=== PATIENT | male | born 1950 | race Caucasian/White ===

== ENCOUNTER 2020-10-29 04:42 | Emergency (ER) | payer OTHER ==
[2020-10-29 18:57] LABS: SARS-CoV-2 MS2 Positive; SARS-CoV-2 N Gene Negative; SARS-CoV-2 S Gene Negative; SARS-CoV-2 by NAA Not Detected (NotDetected); SARS-CoV-2 orf1ab Negative
== END 2020-10-29 05:50 | disposition home or self-care (01) ==
LOC: NAV ERS 04:42
DX: R05 Cough (principal); R52 Pain, unspecified; Z20.822 Contact with and (suspected) exposure to COVID-19; G47.30 Sleep apnea, unspecified
CPT/HCPCS: 87635; 87804; 99283; U0003